=== PATIENT | female | born 1970 | race Caucasian/White ===

== ENCOUNTER 2016-12-20 23:18 | Emergency (ER) | payer BC, SELFPAY ==
[~2016-12-20 23:18] MED LIST: AMBIEN10 M1 PO; AMITRIPTYLINE H75 M1 PO; ATIVAN0.5 M1 PO; BL MAXEPA CAPSU1 CAP; IRON1 TAB; KEFLEX500 MG; LORTAB 5/500 TA1 TAB PO; PREDNISONE10 MG; PRENATAL1 TAB; TOPROL XL25 M1 PO; TYLENOL325 MG; VISTARIL25 MG
[2016-12-20] MEDS ORDERED: ALBUTEROL0.63 MG/1 INH (23:33)
[2016-12-20] MEDS ORDERED: ADVAIR 100-501 EACH PO (23:33)
[2016-12-21 00:56] LABS: PREGNANCY-SERUM NEGATIVE (NEGATIVE)
[2016-12-21 00:58] LABS: BASO % 0.3 % (0-2); EOS % 1.5 % (0-7); EOSINOPHIL ABSOLUTE COUNT 0.2 tho/cmm (0.0-0.7); HCT-HEMATOCRIT 38.1 % (34.0-49.0); HGB-HEMOGLOBIN 12.6 gm/dl (12.0-15.5); IMMATURE GRANULOCYTES ABSOLUTE 0.02 tho/cmm (0-0.03); IMMATURE GRANULOCYTES PERCENT 0.2 % (0-0.3); LYMPH % 26.7 % (20-45); LYMPH ABSOLUTE COUNT 2.7 tho/cmm (0.8-4.5); MCH (MEAN CORPUSCULAR HGB) 29.4 pg (28.0-32.0); MCHC MEAN CORPUSCULAR HGB CONC 33.1 % (32.0-36.0); MCV (MEAN CELL VOLUME) 88.8 fl (82.0-96.0); MONO % 4.9 % (0-12); MONOCYTE ABSOLUTE COUNT 0.5 tho/cmm (0.0-1.2); NEUTROPHIL ABSOLUTE COUNT 6.8 tho/cmm (1.6-8.0); NEUTROPHIL-AUTOMATED 6.8 tho/cmm (1.6-8.0); NEUTROPHILS % 66.4 % (40-80); PLATELET COUNT 311 tho/cmm (150-450); RED BLOOD COUNT 4.29 mil/cmm (4.00-5.20); RED CELL DISTRIBUTION WIDTH 13.3 % (12.4-16.4); WHITE BLOOD COUNT 10.2 tho/cmm (4.0-10.0)
[2016-12-21 01:04] LABS: ANION GAP 18 mmol/L (0-20); BLOOD UREA NITROGEN 16 mg/dl (6-24); CALCIUM 8.4 mg/dl (8.5-10.5); CARBON DIOXIDE-VENOUS 21 mmol/L (22-32); CHLORIDE 112 mmol/l (96-110); CREATININE 0.63 mg/dl (0.50-1.10); GLUCOSE 91 mg/dL (70-110); SODIUM 147 mmol/L (135-145); eGFR VALUE FOR BLACK >90 mL/Min
[2016-12-21 01:07] LABS: TSH-THYROID STIMULATING HORM. 1.87 uIU/ml (0.40-3.80)
[2016-12-21] MEDS ORDERED: FLONASE ALLERG9.9 ML (01:33)
[2016-12-21] MEDS ORDERED: ATIVAN0.5 M1 PO (01:33)
[2016-12-21] MEDS ORDERED: AUGMENTIN 875-1 EAC2 PO (01:33)
[2016-12-21 01:54] LABS: URINE BILIRUBIN NEGATIVE (NEG); URINE BLOOD SMALL (NEG); URINE GLUCOSE (UA) NEGATIVE (NEG); URINE KETONE MODERATE (NEG); URINE LEUKOCYTE ESTERASE NEGATIVE (NEG); URINE NITRITE NEGATIVE (NEG); URINE PROTEIN SMALL (NEG); URINE SPECIFIC GRAVITY 1.025 (1.003-1.030)
[2016-12-21 01:58] LABS: URINE APPEARANCE CLEAR; URINE COLOR YELLOW
[2016-12-21 02:06] LABS: URINE MUCUS 1+; URINE RBC 0-2 /[HPF] (0-5); URINE WBC 0-1 /[HPF] (0-5)
[2017-03-13] MEDS ORDERED: AMITRIPTYLINE H50 M1 PO (11:27)
[2017-03-13] MEDS ORDERED: AUGMENTIN 875-1 EAC2 PO (11:29)
[2017-03-13] MEDS ORDERED: ZYRTEC1010 PO (11:30)
[2017-03-13] MEDS ORDERED: ADVAIR 25028 BLISTE1 INH (11:32)
[2017-03-13] MEDS ORDERED: IBUPROFEN200 M2 PO (11:33)
[2017-03-13] MEDS ORDERED: LAVENDER FRAGRAN1 ML TOP (11:33)
[2017-03-13] MEDS ORDERED: ZOLOFT25 M1 PO (11:34)
[2017-03-13] MEDS ORDERED: KLONOPIN0.5 M1 PO (11:35)
[2017-03-13] MEDS ORDERED: LEXAPRO20 M2 PO (11:36)
[2017-03-13] MEDS ORDERED: ST. JOHN'S WOR300 M2 PO (12:04)
[2017-03-13] MEDS ORDERED: [UNRECOGNIZED DRUG - OTHER] TOP (12:08)
[2017-03-13] MEDS ORDERED: VITAMIN C500 M3 PO (12:09)
[2017-03-13] MEDS ORDERED: ZOFRAN4 M2 PO (13:34)
[2017-03-13] MEDS ORDERED: DICYCLOMINE HCL20 M1 PO (13:34)
[2017-03-20] MEDS ORDERED: PRILOSEC10 M3 PO (11:58)
[2017-03-20] MEDS ORDERED: [UNRECOGNIZED DRUG - OTHER] SL (14:19)
[2017-03-20] MEDS ORDERED: PROTONIX40 M2 PO (14:19)
[2017-03-20] MEDS ORDERED: MAALOX MAXIMUM355 M1 PO (14:19)
[2017-03-20] MEDS ORDERED: ZOFRAN4 M2 PO (14:43)
[2017-03-26] MEDS ORDERED: AMITRIPTYLINE H50 M1 PO (16:55)
[2017-03-26] MEDS ORDERED: ORAZINC220 M1 PO (16:57)
[2017-03-26] MEDS ORDERED: RANITIDINE HCL150 M3 PO (16:57)
[2017-03-26] MEDS ORDERED: VITAMIN C WITH500 M2 PO (16:57)
[2017-03-26] MEDS ORDERED: VITAMIN B COMP1 EAC1 PO (16:58)
[2017-03-26] MEDS ORDERED: [UNRECOGNIZED DRUG - OTHER] (16:58)
== END 2016-12-21 02:44 ==
LOC: EDMED 23:18
PROVIDERS: Emergency Medicine
DX: J32.9 Chronic sinusitis, unspecified (principal); F41.0 Panic disorder [episodic paroxysmal anxiety]; Z87.891 Personal history of nicotine dependence; F41.9 Anxiety disorder, unspecified; Z79.899 Other long term (current) drug therapy
CPT/HCPCS: J2060; J7030

== ENCOUNTER 2017-03-28 06:29 | Day surgery (SDC) | payer BC ==
[~2017-03-28] VITALS: Ht 172.7 cm; Wt 66.2 kg
[~2017-03-28 06:29] MED LIST changes: +ADVAIR 100-501 EACH PO; +ADVAIR 25028 BLISTE1 INH; +ALBUTEROL0.63 MG/1 INH; +AMITRIPTYLINE H50 M1 PO; +AUGMENTIN 875-1 EAC2 PO; +DICYCLOMINE HCL20 M1 PO; +FLONASE ALLERG9.9 ML; +IBUPROFEN200 M2 PO; +KLONOPIN0.5 M1 PO; +LAVENDER FRAGRAN1 ML TOP; +LEXAPRO20 M2 PO; +MAALOX MAXIMUM355 M1 PO; +ORAZINC220 M1 PO; +PRILOSEC10 M3 PO; +PROTONIX40 M2 PO; +RANITIDINE HCL150 M3 PO; +ST. JOHN'S WOR300 M2 PO; +VITAMIN B COMP1 EAC1 PO; +VITAMIN C WITH500 M2 PO; +VITAMIN C500 M3 PO; +ZOFRAN4 M2 PO; +ZOLOFT25 M1 PO; +ZYRTEC1010 PO; +[UNRECOGNIZED DRUG - OTHER]; +[UNRECOGNIZED DRUG - OTHER] SL; +[UNRECOGNIZED DRUG - OTHER] TOP
[2017-03-28 07:37] LABS: ANION GAP 12 mmol/L (0-20); BLOOD UREA NITROGEN 11 mg/dl (6-24); CALCIUM 8.6 mg/dl (8.5-10.5); CARBON DIOXIDE-VENOUS 26 mmol/L (22-32); CHLORIDE 107 mmol/l (96-110); CREATININE 0.76 mg/dl (0.50-1.10); GLUCOSE 88 mg/dL (70-110); POTASSIUM 3.5 mmol/L (3.7-5.1); SODIUM 141 mmol/L (135-145); eGFR VALUE FOR BLACK >90 mL/Min
== END 2017-03-28 10:40 ==
LOC: SHSC 06:29 → ENDOS 06:29
PROVIDERS: Anesthesiology
PROC: 0DB98ZX Excision of Duodenum, Via Natural or Artificial Opening Endoscopic, Diagnostic (ICD-10-PCS; principal; 2017-03-28)
PROC: 0DB68ZX Excision of Stomach, Via Natural or Artificial Opening Endoscopic, Diagnostic (ICD-10-PCS; 2017-03-28)
PROC: 0DBE8ZX Excision of Large Intestine, Via Natural or Artificial Opening Endoscopic, Diagnostic (ICD-10-PCS; 2017-03-28)
PROC: 0DBM8ZZ Excision of Descending Colon, Via Natural or Artificial Opening Endoscopic (ICD-10-PCS; 2017-03-28)
DX: D12.4 Benign neoplasm of descending colon (principal); K31.89 Other diseases of stomach and duodenum; K63.89 Other specified diseases of intestine; F41.9 Anxiety disorder, unspecified; K21.9 Gastro-esophageal reflux disease without esophagitis; G43.909 Migraine, unspecified, not intractable, without status migrainosus; Z79.899 Other long term (current) drug therapy; Z87.891 Personal history of nicotine dependence